=== PATIENT | male | born 1970 | race African-American/Black ===

== ENCOUNTER 2017-03-03 15:51 | Emergency (ER) | payer MEDICAID, OTHER ==
[~2017-03-03] VITALS: Ht 188 cm; Wt 95.3 kg
[~2017-03-03 15:51] MED LIST: ABILIFY2 MG ORAL; NORCO 5-325 TA1 EACH ORAL
[2017-03-03 16:33] VITALS: BP 137/75
[2017-03-03 17:35] VITALS: BP 137/75
--- NOTE | 2017-03-03 17:56 | Emergency Room Report ---
History of Present Illness General Chief Complaint: Alcohol Intoxication Source: Patient, EMS Present Illness HPI The patient is a 46 old male brought in by ambulance for suppose it alcohol intoxication. The patient admits to drinking 6 beers. He states that he does not want to be here and denies any symptoms including nausea, vomiting, fever, chills, headache, chest pain, shortness of breath Allergies: Coded Allergies: No Known Allergies (Unverified , 05/09/13) Patient History Past Medical History: see triage record Pertinent Family History: none Social History: Reports: alcohol use Reviewed Nursing Documentation: PMH: Agreed, PSxH: Agreed Nursing Documentation-PM Past Medical History: No History, Except For History Of Psychiatric Problem: Yes - SCHIZOPHRENIA, SUBSTANCE ABUSE Review of Systems All Other Systems: negative except mentioned in HPI Physical Exam Vital Signs Date Time Temp Pulse Resp B/P (MAP) Pulse Ox O2 Delivery O2 Flow Rate FiO2 03/03/17 16:23 94 16 137/75 98 Room Air Sp02 EP Interpretation: reviewed, normal General Appearance: no apparent distress, alert, GCS 15, non-toxic Head: normocephalic, atraumatic Eyes: bilateral eye normal inspection, bilateral eye PERRL ENT: hearing grossly normal, normal pharynx, no angioedema, normal voice Neck: full range of motion, supple/symm/no masses Respiratory: chest non-tender, lungs clear, normal breath sounds, no wheezing, speaking full sentences Cardiovascular #1: regular rate, rhythm, no edema Gastrointestinal: normal bowel sounds, non tender, soft, non-distended, no guarding, no rebound Musculoskeletal: back normal, gait/station normal, normal range of motion, non- tender Neurologic: alert, responsive, motor strength/tone normal, sensory intact Psychiatric: judgement/insight normal, memory normal, mood/affect normal, no suicidal/homicidal ideation Skin: normal color, no rash, warm/dry, well hydrated Medical Decision Making PA Attestation Dr. Woodard is my supervising physician. Patient management was discussed with my supervising physician Diagnostic Impression: Primary Impression: Acute alcoholic intoxication Qualified Codes: F10.929 - Alcohol use, unspecified with intoxication, unspecified ER Course The patient is a 46 old male brought in by ambulance for suppose it alcohol intoxication DDx considered but not limited to: acute alcohol intoxication, hepatic encephalopathy, drug overdose, hypoglycemia, psychosis Physical exam: Vitals are within normal limits. No apparent distress. Head is normocephalic atraumatic. Pupils are equally round and reactive to light Lungs are clear to auscultation bilaterally. No abdominal tenderness. Abdomen is soft. Otherwise exam is unremarkable The patient is given time to rest in the emergency department. The patient repeatedly moved from the area that he was supposed to be in. We continued to have him return and told him he is not being discharged at this time. He states that he wants to leave. The patient is alert at this time with a steady gait. He has eloped Last Vital Signs Date Time Temp Pulse Resp B/P (MAP) Pulse Ox O2 Delivery O2 Flow Rate FiO2 03/03/17 16:23 94 16 137/75 98 Room Air Status: improved Disposition: ELOPED Condition: Unknown VIRGINIA GORDILLO Mar 03, 2017 17:56
== END 2017-03-03 17:35 | disposition left against medical advice (07) ==
LOC: EDBD 15:51 → EMR 16:46
DX: F10.129 Alcohol abuse with intoxication, unspecified (principal)
CPT/HCPCS: 99282

== ENCOUNTER 2018-10-06 08:36 | Emergency (ER) | payer MEDICAID, OTHER ==
[~2018-10-06] VITALS: Ht 190.5 cm; Wt 80.7 kg
[~2018-10-06 08:36] MED LIST changes: +NKM
--- NOTE | 2018-10-06 08:36 | NUR ---
ED Nurse Note: Patient brought in by ambulance from home (girlfriend's house), c/o abdominal pain since yesterday, patient reports nausea and vomiting x 1 day. patient is alert awake x4 ambulatory steady gait, breathing unlabored and even, skin is warm to touch.
[2018-10-06 08:43] VITALS: BP 121/81
--- NOTE | 2018-10-06 08:57 | NUR ---
ED Nurse Note: blood and urine sent to lab
[2018-10-06] MEDS ORDERED: Capsaicin 0.075% Cream TOPIC ONE (09:00)
[2018-10-06 09:13] LABS: APPEARANCE,URINE CLEAR; BASOPHILS % (AUTO) 1.1 % (0.0-2.0); BILIRUBIN, URINE NEGATIVE (NEGATIVE); COLOR,URINE BROWN; EOSINOPHILS % (AUTO) 3.6 % (0.0-3.0); GLUCOSE, URINE (UA) NEGATIVE (NEGATIVE); HEMATOCRIT 46.8 % (42.0-52.0); HEMOGLOBIN 15.7 G/DL (14.2-18.0); KETONES,URINE 1+ (NEGATIVE); LEUKOCYTE ESTERASE ,URINE 1+ (NEGATIVE); LYMPHOCYTES % (AUTO) 20.4 % (20.0-45.0); MEAN CORPUSCULAR VOLUME 105 FL (80-99); MONOCYTES % (AUTO) 5.7 % (1.0-10.0); NEUTROPHILS % (AUTO) 69.3 % (45.0-75.0); NITRITE,URINE NEGATIVE (NEGATIVE); PH,URINE 5 (4.5-8.0); PLATELET COUNT 163 K/UL (150-450); PROTEIN,URINE 2+ (NEGATIVE); RED BLOOD COUNT 4.48 M/UL (4.70-6.10); RED CELL DISTRIBUTION WIDTH 12.2 % (11.6-14.8); UROBILINOGEN,URINE 4 MG/DL (0.0-1.0); WHITE BLOOD COUNT 6.4 K/UL (4.8-10.8)
[2018-10-06 09:17] LABS: ANION GAP 10 mmol/L (5-15); BLOOD UREA NITROGEN 12 mg/dL (7-18); CALCIUM 8.4 MG/DL (8.5-10.1); CARBON DIOXIDE 27 MMOL/L (21-32); CHLORIDE 105 MMOL/L (98-107); POTASSIUM 3.8 MMOL/L (3.5-5.1); SODIUM 142 MMOL/L (136-145)
[2018-10-06 09:22] LABS: ALANINE AMINOTRANSFERASE 157 U/L (12-78); ALBUMIN 3.7 G/DL (3.4-5.0); ALBUMIN/GLOBULIN RATIO 1.3 (1.0-2.7); ALKALINE PHOSPHATASE 85 U/L (46-116); ASPARTATE AMINO TRANSFERASE 254 U/L (15-37); BILIRUBIN,TOTAL 0.4 MG/DL (0.2-1.0)
[2018-10-06] MEDS ORDERED: Isovue-300 100ml vial INJ PRN (09:45)
--- NOTE | 2018-10-06 10:10 | NUR ---
ED Nurse Note: patient went to CT
--- NOTE | 2018-10-06 10:19 | NUR ---
ED Nurse Note: patient came back from CT
--- NOTE | 2018-10-06 10:22 | Emergency Room Report ---
History of Present Illness General Chief Complaint: Abdominal Pain Source: Patient, EMS Present Illness HPI This patient has a history of alcohol abuse. He presents for abdominal pain. He states that over the past day he has nausea, vomiting and abdominal pain. He admits to drinking alcohol and using marijuana over the past 24 hours. He denies headache or neck pain. He denies chest pain or shortness of breath. He denies fever or chills. He has no other complaints. Allergies: Coded Allergies: No Known Allergies (Unverified , 05/09/13) Patient History Past Medical History: see triage record, other - HX of ETOH abuse Social History: Reports: alcohol use, drug use; Denies: smoking Reviewed Nursing Documentation: PMH: Agreed; PSxH: Agreed Nursing Documentation-PMH Past Medical History: No Stated History Review of Systems All Other Systems: negative except mentioned in HPI Physical Exam Vital Signs Date Time Temp Pulse Resp B/P (MAP) Pulse Ox O2 Delivery O2 Flow Rate FiO2 10/06/18 08:28 98.2 98 18 129/84 (99) 99 Room Air Sp02 EP Interpretation: reviewed, normal General Appearance: no apparent distress, alert, GCS 15, non-toxic Head: normocephalic, atraumatic Eyes: bilateral eye normal inspection, bilateral eye PERRL ENT: hearing grossly normal, normal pharynx, no angioedema, normal voice Neck: full range of motion, supple/symm/no masses Respiratory: chest non-tender, lungs clear, normal breath sounds, no respiratory distress, no retraction, no accessory muscle use, speaking full sentences Cardiovascular #1: regular rate, rhythm, no edema Gastrointestinal: normal bowel sounds, soft, non-distended, no guarding, no rebound, tenderness - Diffusely TTP Rectal: deferred Musculoskeletal: back normal, gait/station normal, normal range of motion, non- tender Neurologic: alert, oriented x3, responsive, motor strength/tone normal, sensory intact, speech normal Psychiatric: judgement/insight normal, memory normal, mood/affect normal, no suicidal/homicidal ideation Medical Decision Making Diagnostic Impression: Primary Impression: Hepatitis Additional Impression: Gastroenteritis ER Course This patient has a clinical presentation consistent with gastroenteritis and hepatitis that is likely alcoholic in etiology. Patient is known to have alcohol abuse. The patient's abdominal exam was benign. I do not suspect cholecystitis, pancreatitis, appendicitis or diverticulitis based on history and physical and laboratory workup, in combination with CT of the abdomen and pelvis. These symptoms could also be related to cannabis hyperemesis syndrome. The patient is nontoxic and nonsurgical at this time. The patient was given return precautions and followup instructions. Laboratory Tests Test 10/06/18 08:50 White Blood Count 6.4 K/UL (4.8-10.8) Red Blood Count 4.48 M/UL (4.70-6.10) L Hemoglobin 15.7 G/DL (14.2-18.0) Hematocrit 46.8 % (42.0-52.0) Mean Corpuscular Volume 105 FL (80-99) H Mean Corpuscular Hemoglobin 35.1 PG (27.0-31.0) H Mean Corpuscular Hemoglobin Concent 33.6 G/DL (32.0-36.0) Red Cell Distribution Width 12.2 % (11.6-14.8) Platelet Count 163 K/UL (150-450) Mean Platelet Volume 5.3 FL (6.5-10.1) L Neutrophils (%) (Auto) 69.3 % (45.0-75.0) Lymphocytes (%) (Auto) 20.4 % (20.0-45.0) Monocytes (%) (Auto) 5.7 % (1.0-10.0) Eosinophils (%) (Auto) 3.6 % (0.0-3.0) H Basophils (%) (Auto) 1.1 % (0.0-2.0) Urine Color Brown Urine Appearance Clear Urine pH 5 (4.5-8.0) Urine Specific [place] 1.025 (1.005-1.035) Urine Protein 2+ (NEGATIVE) H Urine Glucose (UA) Negative (NEGATIVE) Urine Ketones 1+ (NEGATIVE) H Urine Blood 2+ (NEGATIVE) H Urine Nitrite Negative (NEGATIVE) Urine Bilirubin Negative (NEGATIVE) Urine Urobilinogen 4 MG/DL (0.0-1.0) H Urine Leukocyte Esterase 1+ (NEGATIVE) H Urine RBC 2-4 /HPF (0 - 0) H Urine WBC 0-2 /HPF (0 - 0) Urine Squamous Epithelial Cells None /LPF (NONE/OCC) Urine Amorphous Sediment Few /LPF (NONE) H Urine Bacteria Occasional /HPF (NONE) Urine Mucus Moderate /LPF (NONE/OCC) H Sodium Level 142 MMOL/L (136-145) Potassium Level 3.8 MMOL/L (3.5-5.1) Chloride Level 105 MMOL/L (98-107) Carbon Dioxide Level 27 MMOL/L (21-32) Anion Gap 10 mmol/L (5-15) Blood Urea Nitrogen 12 mg/dL (7-18) Creatinine 1.0 MG/DL (0.55-1.30) Estimate Glomerular Filtration Rate > 60 mL/min (>60) Glucose Level 83 MG/DL (74-106) Calcium Level 8.4 MG/DL (8.5-10.1) L Total Bilirubin 0.4 MG/DL (0.2-1.0) Aspartate Amino Transferase (AST) 254 U/L (15-37) H Alanine Aminotransferase (ALT) 157 U/L (12-78) H Alkaline Phosphatase 85 U/L (46-116) Total Protein 6.5 G/DL (6.4-8.2) Albumin 3.7 G/DL (3.4-5.0) Globulin 2.8 g/dL Albumin/Globulin Ratio 1.3 (1.0-2.7) Lipase 186 U/L (73-393) Urine Opiates Screen Negative (NEGATIVE) Urine Barbiturates Screen Negative (NEGATIVE) Phencyclidine (PCP) Screen Negative (NEGATIVE) Urine Amphetamines Screen Negative (NEGATIVE) Urine Benzodiazepines Screen Negative (NEGATIVE) Urine Cocaine Screen Positive (NEGATIVE) H Urine Marijuana (THC) Screen Positive (NEGATIVE) H Serum Alcohol 130 mg/dL CT/MRI/US Diagnostic Results CT/MRI/US Diagnostic Results : Imaging Test Ordered: CT abd/pelvis Impression IMPRESSION: Hepatomegaly with fatty infiltration. Degenerative disc disease at L5-S1. Last Vital Signs Date Time Temp Pulse Resp B/P (MAP) Pulse Ox O2 Delivery O2 Flow Rate FiO2 10/06/18 08:43 98.2 89 16 121/81 99 Room Air Status: improved Disposition: HOME, SELF-CARE Condition: Improved Referrals: [facility],REFERR[facility] (PCP) Patient Instructions: Abdominal Pain, Adult Ludy Woodard DO Oct 06, 2018 10:22
[2018-10-06] MEDS ORDERED: Lidocaine 2% Visc 15ml soln ORAL ONE (10:30)
--- NOTE | 2018-10-06 11:10 | Diagnostic Imaging Report ---
Indication: Abdominal pain Technique: Continuous helical transaxial imaging of the abdomen and pelvis was obtained from the lung bases to the pubic symphysis during intravenous contrast administration. Coronal 2-D reformats were also obtained. Study obtained in a Siemens sensation [address] Automatic Exposure Control was utilized. Total Dose length Product (DLP): 552.[address] Dose Index Volume (CTDIvol): 10.72 mGy Comparison: None Findings: The lung bases are clear. The liver is diffusely hypodense consistent with fatty infiltration. Craniocaudal dimension of the liver is 23 cm which is enlarged. There is relative absence of intra-abdominal fat which does limit the interpretation to some extent. The kidneys are grossly unremarkable. The pancreas, spleen, gallbladder appear unremarkable. There is no free fluid. Bowel gas pattern appears nonobstructive. The urinary bladder is mostly nondistended. The appendix is partially seen and appears normal. Vacuum phenomenon, narrowing of the L5-S1 disc with endplate and mild facet spur formation noted. IMPRESSION: Hepatomegaly with fatty infiltration. Degenerative disc disease at L5-S1. The CT scanner at [facility] is accredited by the [employer] and the scans are performed using dose optimization techniques as appropriate to a performed exam including Automatic Exposure control.
[2018-10-06] MEDS ORDERED: PEPCID AC20 M2 PO (11:28)
[2018-10-06 12:02] VITALS: BP 121/81
--- NOTE | 2018-10-06 12:02 | NUR ---
ER DISCHARGE NOTE: Patient is cleared to be discharged per ERMWilfredo BLACKWOOD, pt is aox4, on room air, with stable vital signs. pt was given DC instructions, prescriptions sent electronically, pt was able to verbalize understanding, pt id band and iv site removed without complications. pt is able to ambulate with steady gait. pt took all belongings.
== END 2018-10-06 12:02 | disposition home or self-care (01) ==
LOC: EDBD 08:36 → EMR 08:50
DX: K52.9 Noninfective gastroenteritis and colitis, unspecified (principal); K75.9 Inflammatory liver disease, unspecified; M51.37 Other intervertebral disc degeneration, lumbosacral region; R16.0 Hepatomegaly, not elsewhere classified
CPT/HCPCS: 36415; 74177; 80053; 80307; 81003; 83690; 85025; 96361; 96374; 96375; 99284; G0480; J2405; Q9967; S0028; 80329